=== PATIENT | male | born 2005 | race Caucasian/White ===

== ENCOUNTER 2025-04-03 14:45 | Outpatient (CLI) | payer BC ==
[2025-04-03 15:27] LABS: Hematocrit 46.1 % (38.8-50.0); Hemoglobin 16.1 g/dL (13.5-17.5); Mean Corpuscular Hemoglobin 28.7 pg (27.0-33.0); Mean Corpuscular Volume 82.2 fL (81.2-95.1); Platelet Count 219 10x3/uL (150-450); Red Blood Cell (RBC) Count 5.61 10x6/uL (4.32-5.72); White Blood Cell (WBC) Count 9.02 10x3/uL (3.5-10.5)
[2025-04-03 15:45] LABS: Anion Gap 15 mmol/L (10-20); BUN (Urea Nitrogen) 21 mg/dL (8.9-20.6); Calc. Creatinine Clearance 0 mL/min (70-130); Calcium 9.7 mg/dL (7.8-10.44); Carbon Dioxide 23 mmol/L (22-29); Chloride 106 mmol/L (98-107); Glucose 97 mg/dL (70-105); Potassium 4.1 mmol/L (3.5-5.1); Sodium 140 mmol/L (136-145)
== END 2025-04-03 14:46 | disposition home or self-care (01) ==
LOC: CSHLAB 14:45
PROVIDERS: ATTEND Specialist
DX: Z01.812 Encounter for preprocedural laboratory examination (principal); L98.8 Other specified disorders of the skin and subcutaneous tissue
CPT/HCPCS: 80048; 85027

== ENCOUNTER 2025-04-06 10:24 | Day surgery (SDC) | payer BC ==
[2025-04-03 16:34] VITALS: BMI 24.3
[2025-04-06] MEDS ORDERED: Acetaminophen 500 MG TAB ONE (10:59)
[2025-04-06] MEDS ORDERED: Ketorolac Tromethamine 30 MG (1 mL) VIAL ONE ×2 (10:59→14:24)
[2025-04-06] MEDS ORDERED: Rocuronium Bromide 10 MG/ML (10ML VIAL) ONE (12:29)
[2025-04-06] MEDS ORDERED: PROPOFOL 20 ML ONE (12:29)
[2025-04-06] MEDS ORDERED: Bupivacaine/Epinephrine 0.25% 30 ML VIAL ONE (12:32)
[2025-04-06] MEDS ORDERED: CEFAZOLIN 2 GM VIAL ONE (12:35)
[2025-04-06] MEDS ORDERED: Ondansetron PF 4 MG/2 ML Vial ONE (13:12)
[2025-04-06] MEDS ORDERED: SUGAMMADEX SODIUM 200 MG/2 ML VIAL ONE (13:22)
[2025-04-06] MEDS ORDERED: HYDROcodone/Acetaminophen 5/325 mg Tablet ONE (16:30)
== END 2025-04-06 16:55 | disposition home or self-care (01) ==
LOC: CSHSDC 10:24
PROVIDERS: ATTEND Specialist
DX: L05.91 Pilonidal cyst without abscess (principal)
CPT/HCPCS: 88304; J1100; J1885; J2704; J3010